=== PATIENT | female | born 1985 | race Caucasian/White ===

== ENCOUNTER → 2020-02-28 | Outpatient (CLI) | payer OTHER | END | disposition home or self-care (01) | LOC: LAB SHORT 17:26 | DX: N30.01 Acute cystitis with hematuria (principal) | CPT/HCPCS: 87077; 87086; 87186 ==

== ENCOUNTER 2020-05-26 10:07 | Day surgery (SDC) | payer OTHER ==
[~2020-05-26] VITALS: Ht 165.1 cm; Wt 112.8 kg
[~2020-05-26 10:07] MED LIST: CEPH500 PO; HYDR1TAB94 PO; KETO10 PO; Norco 7.5-3251 EACH PO; ONDA4ODT MM; PANT40 PO
[2020-05-26] MEDS ORDERED: OMEP20ER (11:06)
--- NOTE | 2020-05-26 13:08 | NUR ---
05/26/20 1308 Zara Isabel UPPER PROCEDURE STARTED 1243, PT. MOVING ENDED UP PULLING IV OUT. DR. CHILD PULLED SCOPE OUT, IV RESTARTED IN LEFT HAND WITH ALSO AN ATTEMPT IN RIGHT HAND BUT DR. GONZALEZ WANTED A FASTER RUNNING IV NOTED ABOVE IN LEFT HAND. SCOPE BACK N 1258, SCOPE OUT AT 1259. UPPER DONE. ALL IV'S 20G.
== END 2020-05-26 13:50 | disposition home or self-care (01) ==
LOC: ORSCSDS 10:07
PROVIDERS: Internal Medicine Gastroenterology
PROC: 0DB68ZX Excision of Stomach, Via Natural or Artificial Opening Endoscopic, Diagnostic (ICD-10-PCS; principal; 2020-05-26 12:00)
PROC: 0DB98ZX Excision of Duodenum, Via Natural or Artificial Opening Endoscopic, Diagnostic (ICD-10-PCS; principal; 2020-05-26 12:00)
PROC: 0DBE8ZX Excision of Large Intestine, Via Natural or Artificial Opening Endoscopic, Diagnostic (ICD-10-PCS; principal; 2020-05-26 12:00)
DX: K92.0 Hematemesis (principal); K64.8 Other hemorrhoids; R19.7 Diarrhea, unspecified; R10.12 Left upper quadrant pain; E66.01 Morbid (severe) obesity due to excess calories; Z68.41 Body mass index [BMI] 40.0-44.9, adult
CPT/HCPCS: 88305; 88342; J2704; J7120